=== PATIENT | female | born 1950 | race Caucasian/White ===

== ENCOUNTER 2020-04-06 19:42 | Inpatient (IN) ==
[2020-04-06 20:47] LABS: Basophils # 0.1 K/mcL (0.0-0.2); Basophils % 0.6 %; Eosinophils # 0.4 K/mcL (0.0-0.6); Eosinophils % 2.5 %; Hematocrit 23.1 % (35.3-44.9); Hemoglobin 6.9 g/dL (11.5-15.4); Immature Granulocytes % 0.7 % (0-4); Lymphocytes # 0.9 K/mcL (0.6-4.6); Lymphocytes % 6.6 %; Mean Corpuscular HGB Conc 29.9 g/dL (31.6-35.5); Mean Corpuscular Hemoglobin 25.8 pg (28.0-33.3); Mean Corpuscular Volume 86.5 fL (83.0-100.0); Mean Platelet Volume 10.2 fL (9.4-12.4); Monocytes # 0.9 K/mcL (0.0-1.3); Monocytes % 6.5 %; Neutrophils # 11.8 K/mcL (1.6-8.9); Nucleated Red Blood Cells 0.2 /100 WBC (0); Platelet Count 702 K/mcL (140-400); Red Blood Count 2.67 M/mcL (3.82-4.97); Segmented Neutrophils % 83.1 %; White Blood Count 14.2 K/mcL (4.3-11.1)
[2020-04-06 21:01] LABS: BUN/Creatinine Ratio 35 (6-26); Blood Urea Nitrogen 17 mg/dL (8-23); Calcium 8.3 mg/dL (8.6-10.3); Carbon Dioxide 24 mEq/L (23-29); Chloride 103 mEq/L (98-107); Glucose 159 mg/dL (70-105); Osmolality,Calculated 291 (280-300); Potassium 3.4 mEq/L (3.5-5.1); Sodium 138 mEq/L (136-145); eGFR For African Americans > 60 (> 60); eGFR For Non-African Americans > 60 (> 60)
[2020-04-06 21:02] LABS: Troponin I < 0.03 ng/mL (< 0.04)
[2020-04-06] MEDS ORDERED: levoFLOXacin 500 MG TABLET PO ONE (23:53)
[2020-04-07] MEDS ORDERED: Ondansetron 4 MG/2 ML VIAL IVP PRN (00:36)
[2020-04-07] MEDS ORDERED: Melatonin 3 MG TABLET PO PRN (00:36)
[2020-04-07] MEDS ORDERED: Potassium Chloride Elixir 20 MEQ/15 ML UDC PO ONE ×2 (00:56→01:30)
[2020-04-07] MEDS ORDERED: 0.9 % Sodium Chloride 250 ML ONE (01:06)
[2020-04-07 01:22] LABS: Adenovirus Not Detected (Not Detect); Bordetella Pertussis Not Detected (Not Detect); Chlamydophila pneumoniae Not Detected (Not Detect); Coronavirus 229E Not Detected (Not Detect); Coronavirus HKU1 Not Detected (Not Detect); Coronavirus NL63 Not Detected (Not Detect); Coronavirus OC43 Not Detected (Not Detect); Human Metapneumovirus Not Detected (Not Detect); Human Rhinovirus/Enterovirus Not Detected (Not Detect); Influenza A Subtype 2009 H1 Not Detected (Not Detect); Influenza B Not Detected (Not Detect); Mycoplasma pneumoniae Not Detected (Not Detect); Parainfluenza Virus 1 Not Detected (Not Detect); Parainfluenza Virus 2 Not Detected (Not Detect); Parainfluenza Virus 3 Not Detected (Not Detect); Parainfluenza Virus 4 Not Detected (Not Detect); Respiratory Syncytial Virus Not Detected (Not Detect); SARS-CoV-2 Not Detected (Not Detect)
[2020-04-07 05:54] LABS: Basophils # 0.1 K/mcL (0.0-0.2); Eosinophils # 0.6 K/mcL (0.0-0.6); Eosinophils % 6.1 %; Hematocrit 24.6 % (35.3-44.9); Hemoglobin 7.6 g/dL (11.5-15.4); Immature Granulocytes % 0.6 % (0-4); Lymphocytes # 1.2 K/mcL (0.6-4.6); Lymphocytes % 11.2 %; Mean Corpuscular HGB Conc 30.9 g/dL (31.6-35.5); Mean Corpuscular Hemoglobin 26.6 pg (28.0-33.3); Mean Platelet Volume 10.3 fL (9.4-12.4); Monocytes # 0.9 K/mcL (0.0-1.3); Monocytes % 8.9 %; Neutrophils # 7.5 K/mcL (1.6-8.9); Nucleated Red Blood Cells 0.2 /100 WBC (0); Platelet Count 599 K/mcL (140-400); Red Blood Count 2.86 M/mcL (3.82-4.97); Red Cell Distribution Width 17.1 % (11.5-14.5); Segmented Neutrophils % 72.2 %; White Blood Count 10.4 K/mcL (4.3-11.1)
[2020-04-07] MEDS: cefTRIAXone 2,000 MG in Water for inj. (sterile) 20 ML IVP SCH (08:37)
[2020-04-07] MEDS: Doxycycline 100 MG in 0.9 % Sodium Chloride Mini Bag 100 ML IVPB SCH ×2 (08:37→17:04)
[2020-04-07] MEDS: Furosemide 40 MG/4 ML VIAL IVP SCH ×2 (08:38→20:21)
[2020-04-07] MEDS: *HR* Heparin 5,000 UNIT/ML VIAL SQ SCH ×2 (08:56→17:04)
[2020-04-07 09:33] LABS: BUN/Creatinine Ratio 30 (6-26); Blood Urea Nitrogen 12 mg/dL (8-23); Calcium 8.6 mg/dL (8.6-10.3); Carbon Dioxide 22 mEq/L (23-29); Chloride 106 mEq/L (98-107); Glucose 97 mg/dL (70-105); Osmolality,Calculated 288 (280-300); Potassium 4.2 mEq/L (3.5-5.1); Sodium 139 mEq/L (136-145); eGFR For African Americans > 60 (> 60); eGFR For Non-African Americans > 60 (> 60)
[2020-04-07 09:42] LABS: Folate 18.8 ng/mL (3.0-16.0)
[2020-04-07 10:07] LABS: % Iron Saturation 14 % (15-50); Ferritin 50 ng/mL (10-120); Iron 36 mcg/dL (50-170); Transferrin 182 mg/dL (203-362)
[2020-04-07] MEDS ORDERED: Perflutren Lipid Microsphere 1.3 ML in 0.9 % Sodium Chloride 8.7 ML IVP PRN (14:13)
[2020-04-07] MEDS ORDERED: levoFLOXacin 750 MG/150 ML 750 MG/150 ML BAG IVPB SCH (23:00)
[2020-04-08 05:00] LABS: Hematocrit 26.6 % (35.3-44.9); Hemoglobin 8.2 g/dL (11.5-15.4); Mean Corpuscular HGB Conc 30.8 g/dL (31.6-35.5); Mean Corpuscular Hemoglobin 26.5 pg (28.0-33.3); Mean Corpuscular Volume 85.8 fL (83.0-100.0); Mean Platelet Volume 10.4 fL (9.4-12.4); Platelet Count 588 K/mcL (140-400); Red Cell Distribution Width 17.3 % (11.5-14.5)
[2020-04-08 05:18] LABS: BUN/Creatinine Ratio 34 (6-26); Blood Urea Nitrogen 15 mg/dL (8-23); Calcium 8.4 mg/dL (8.6-10.3); Carbon Dioxide 26 mEq/L (23-29); Chloride 101 mEq/L (98-107); Glucose 123 mg/dL (70-105); Magnesium 1.7 mg/dL (1.6-2.6); Osmolality,Calculated 286 (280-300); Potassium 3.5 mEq/L (3.5-5.1); Sodium 137 mEq/L (136-145); eGFR For African Americans > 60 (> 60); eGFR For Non-African Americans > 60 (> 60)
[2020-04-08] MEDS: Doxycycline 100 MG in 0.9 % Sodium Chloride Mini Bag 100 ML IVPB SCH ×2 (05:48→17:38)
[2020-04-08] MEDS: *HR* Heparin 5,000 UNIT/ML VIAL SQ SCH ×2 (05:49→17:45)
[2020-04-08] MEDS: Furosemide 40 MG/4 ML VIAL IVP SCH ×2 (07:41→20:11)
[2020-04-08] MEDS: cefTRIAXone 2,000 MG in Water for inj. (sterile) 20 ML IVP SCH (07:41)
[2020-04-08] MEDS ORDERED: atenoloL 25 MG TABLET PO SCH (09:00)
[2020-04-08] MEDS: atenoloL 25 MG TABLET PO SCH (12:28)
[2020-04-08] MEDS: Latanoprost 2.5 ML BOTTLE BOTH EYES SCH (20:12)
[2020-04-09 04:53] LABS: Basophils # 0.1 K/mcL (0.0-0.2); Basophils % 0.7 %; Eosinophils # 0.8 K/mcL (0.0-0.6); Eosinophils % 7.1 %; Hematocrit 26.6 % (35.3-44.9); Hemoglobin 8.2 g/dL (11.5-15.4); Immature Granulocytes % 0.9 % (0-4); Lymphocytes # 1.6 K/mcL (0.6-4.6); Lymphocytes % 13.8 %; Mean Corpuscular HGB Conc 30.8 g/dL (31.6-35.5); Mean Corpuscular Hemoglobin 26.5 pg (28.0-33.3); Mean Corpuscular Volume 86.1 fL (83.0-100.0); Mean Platelet Volume 10.3 fL (9.4-12.4); Monocytes # 1.1 K/mcL (0.0-1.3); Monocytes % 9.5 %; Neutrophils # 7.8 K/mcL (1.6-8.9); Platelet Count 605 K/mcL (140-400); Red Blood Count 3.09 M/mcL (3.82-4.97); Red Cell Distribution Width 17.4 % (11.5-14.5); White Blood Count 11.4 K/mcL (4.3-11.1)
[2020-04-09 05:11] LABS: BUN/Creatinine Ratio 43 (6-26); Blood Urea Nitrogen 19 mg/dL (8-23); Calcium 8.4 mg/dL (8.6-10.3); Carbon Dioxide 27 mEq/L (23-29); Chloride 101 mEq/L (98-107); Glucose 137 mg/dL (70-105); Magnesium 1.7 mg/dL (1.6-2.6); Osmolality,Calculated 288 (280-300); Phosphorous 3.9 mg/dL (2.7-4.5); Potassium 3.4 mEq/L (3.5-5.1); Sodium 137 mEq/L (136-145); eGFR For African Americans > 60 (> 60); eGFR For Non-African Americans > 60 (> 60)
[2020-04-09] MEDS: *HR* Heparin 5,000 UNIT/ML VIAL SQ SCH ×2 (06:13→18:35)
[2020-04-09] MEDS: Doxycycline 100 MG in 0.9 % Sodium Chloride Mini Bag 100 ML IVPB SCH ×2 (06:13→18:35)
[2020-04-09] MEDS: cefTRIAXone 2,000 MG in Water for inj. (sterile) 20 ML IVP SCH (08:41)
[2020-04-09] MEDS: atenoloL 25 MG TABLET PO SCH (08:41)
[2020-04-09] MEDS: Furosemide 40 MG/4 ML VIAL IVP SCH ×2 (08:42→21:08)
[2020-04-09] MEDS ORDERED: 0.9 % Sodium Chloride 250 ML IVC SCH (11:45)
[2020-04-09] MEDS ORDERED: Iron Sucrose Complex 400 MG in 0.9 % Sodium Chloride 250 ML IVPB ONE (12:15)
[2020-04-09 13:38] LABS: Immature Reticulocyte % 35.7 % (11.0-38.0); Retculocyte # 0.12 M/mcL (0.05-0.10)
[2020-04-09] MEDS: Latanoprost 2.5 ML BOTTLE BOTH EYES SCH (21:08)
[2020-04-10] MEDS: *HR* Heparin 5,000 UNIT/ML VIAL SQ SCH (06:43)
[2020-04-10 07:51] VITALS: BP 112/53
[2020-04-10] MEDS: atenoloL 25 MG TABLET PO SCH (07:58)
[2020-04-10] MEDS: Furosemide 40 MG/4 ML VIAL IVP SCH (07:59)
[2020-04-10] MEDS: cefTRIAXone 2,000 MG in Water for inj. (sterile) 20 ML IVP SCH (07:59)
[2020-04-10] MEDS: Doxycycline 100 MG CAPSULE PO SCH ×2 (07:59→09:17)
[2020-04-10] MEDS ORDERED: Furosemide 40 MG TABLET PO SCH (08:15)
[2020-04-10 08:21] LABS: Hematocrit 33.7 % (35.3-44.9)
[2020-04-10 08:25] LABS: Hemoglobin 10.4 g/dL (11.5-15.4)
[2020-04-10] MEDS ORDERED: Aspirin Enteric Coated 81 MG Tablet PO SCH (09:00)
[2020-04-12 09:57] LABS: Lambda Qnt Free Light Chains 23.94 mg/L (5.71-26.30)
[2020-04-12 10:38] LABS: Kappa Qnt Free Light Chains 36.91 mg/L (3.30-19.40)
[2020-04-14 02:50] LABS: Alpha 2 Globulin (PEP) 1.54 g/dL (0.48-1.05); Beta Globulin (PEP) 0.81 g/dL (0.48-1.10)
[2020-04-14 10:32] LABS: IFE Reflexed NOT DONE
== END 2020-04-10 10:37 | disposition home or self-care (01) | DRG 871 ==
LOC: EMEROOARM 19:42 → 2NNU 19:42 → SUATTDRO 04-07 11:39 → 2NNU 04-07 20:38 → 3ANU 04-07 21:19
PROVIDERS: ADMIT Student in an Organized Health Care Education/Training Program; ATTEND Internal Medicine